=== PATIENT | female | born 1970 | race Caucasian/White ===

== ENCOUNTER → 2017-03-27 | Outpatient (CLI) | payer OTHER ==
--- NOTE | 2017-03-27 22:29 | CT ---
EXAMINATION TYPE: CT chest wo con DATE OF EXAM: 03/27/2017 7:28 PM COMPARISON: NONE HISTORY: 47-year-old female scar tissue found on chest x-ray, further evaluation. TECHNIQUE: Contiguous axial scanning of the chest without IV contrast. Coronal and sagittal reconstru ctions performed. CT DLP: 629 mGycm Automated exposure control for dose reduction was used. FINDINGS: The heart is normal size without pericardial effusion. Coronary vessel calcifications are present and are a marker for coronary artery disease. Mild lipomatous hypertrophy of the inter atrial septum. Ascending aorta measures at the upper limits of normal at 3.5 cm. There is conventional arterial vess el branching anatomy. No thoracic lymphadenopathy by CT size criteria. Some calcified lymph nodes are noted in the precarin al region and subcarinal region as well as the right hilum. There is mild centrilobular emphysema with mild to moderate diffuse bronchial wall thickening. Some m osaic attenuation throughout the lungs suggests air trapping and small airways disease. There is nodu larity within the peripheral right midlung measuring 1.8 x 0.5 cm with adjacent tiny 3 mm nodules as well. Findings suspected to be on an inflammatory basis, possibly with some endobronchial plugging. T his should be reassessed at follow-up. Visualized upper abdomen shows marked diffuse hypodensity of the liver and calcified granulomas in th e spleen. There is a heterogeneous rounded area partially visualized in the enedina hepatis suspected to represen t a stone filled gallbladder and can be further evaluated with ultrasound to exclude a central liver mass. Bones: Multilevel degenerative disc disease mid to lower thoracic spine. No osseous destructive proce ss. IMPRESSION: 1. COPD WITH MILD EMPHYSEMA BUT A PROMINENT COMPONENT OF CHRONIC BRONCHITIS WITH SMALL AIRWAYS DISEAS E. 2. ELONGATED NODULE IN THE PERIPHERAL RIGHT MIDLUNG MEASURES 1.8 X 0.5 CM WITH SOME ADJACENT TINY 3 M M NODULES WELL. FINDINGS SUSPECTED TO BE ON INFLAMMATORY BASIS, POSSIBLY WITH SOME ENDOBRONCHIAL P LUGGING. SIX-MONTH FOLLOW-UP RECOMMENDED TO REASSESS. 3. MARKED HEPATIC STEATOSIS. CORRELATE WITH LFT's, LIPID PROFILE, AND PATIENT RISK FACTORS. 4. PARTIALLY VISUALIZED ROUND HETEROGENEOUS AREA AT THE PORTAHEPATIS WHICH LIKELY REPRESENTS A STONE PACKED GALLBLADDER. RECOMMEND LIVER ULTRASOUND TO EXCLUDE A CENTRAL HEPATIC MASS. 5. CAD AND PRIOR GRANULOMATOUS DISEASE.
== END | disposition home or self-care (01) ==
LOC: RADCTMAIN 18:54
PROVIDERS: ATTEND Family Medicine
DX: J44.9 Chronic obstructive pulmonary disease, unspecified (principal); R91.8 Other nonspecific abnormal finding of lung field; K76.0 Fatty (change of) liver, not elsewhere classified; R93.2 Abnormal findings on diagnostic imaging of liver and biliary tract; I25.10 Atherosclerotic heart disease of native coronary artery without angina pectoris; D71 Functional disorders of polymorphonuclear neutrophils
CPT/HCPCS: 71250

== ENCOUNTER → 2017-04-04 | Outpatient (CLI) | payer OTHER ==
--- NOTE | 2017-04-04 18:28 | CT ---
EXAMINATION TYPE: CT sinus wo con DATE OF EXAM: 04/04/2017 5:56 PM COMPARISON: NONE HISTORY: Patient complains of recurrent sinus infections. CT DLP: 670.3 mGycm Automated exposure control for dose reduction was used. FINDINGS: There is some mild mucosal thickening in the right side of the sphenoid sinus. There is bilateral pat ency of the ostiomeatal complex. There is a 5 mm mucous retention cyst in the left maxillary sinus. O rbital margins are intact. The maxilla is intact. There is no evidence of orbital mass. IMPRESSION: THERE IS EVIDENCE FOR MILD SPHENOID SINUSITIS. OTHERWISE NEGATIVE EXAM.
== END | disposition home or self-care (01) ==
LOC: RADCTMAIN 17:40
PROVIDERS: ATTEND Otolaryngology
DX: J32.9 Chronic sinusitis, unspecified (principal)
CPT/HCPCS: 70486

== ENCOUNTER → 2017-05-09 | Outpatient (CLI) | payer OTHER ==
--- NOTE | 2017-05-09 17:03 | US ---
EXAMINATION TYPE: US abdomen complete DATE OF EXAM: 05/09/2017 COMPARISON: CT Chest CLINICAL HISTORY: K80.[address] showed possible gallstones. No pain. EXAM MEASUREMENTS: Liver Length: 20.2 cm Gallbladder Wall: 0.2 cm CBD: 0.4 cm Spleen: 12.1 cm Right Kidney: 13.4 x 5.7 x 4.6 cm Left Kidney: 11.2 x 4.7 x 5.6 cm Pancreas: Tail obscured by overlying bowel gas Liver: Echogenic. Heterogenous. Enlarged. Focal hypoechoic area seen adjacent to GB - 4.5 x 1.5 x 2.0 cm. Gallbladder: Multiple mobile echogenic foci Evidence for sonographic Leblanc's sign: neg CBD: wnl Spleen: wnl Right Kidney: enlarged Left Kidney: wnl Upper IVC: seen Abd Aorta: seen IMPRESSION: 1. Gallstones 2. Hepatomegaly
== END | disposition home or self-care (01) ==
LOC: RADUSWWP 08:04
PROVIDERS: ATTEND Family Medicine
DX: K80.20 Calculus of gallbladder without cholecystitis without obstruction (principal); R16.0 Hepatomegaly, not elsewhere classified
CPT/HCPCS: 76700

== ENCOUNTER → 2017-08-28 | Outpatient (CLI) | payer OTHER ==
--- NOTE | 2017-08-28 12:49 | CT ---
EXAMINATION TYPE: CT chest wo con DATE OF EXAM: 08/28/2017 COMPARISON: 03/27/17 HISTORY: lung nodules, hx of pneumonia CT DLP: [address] of the chest was performed with lung and mediastinal window settings submitted. The la ck of contrast limits evaluation of the vascular, mediastinal and parenchymal structures including th e upper abdomen. LUNGS: The lungs are clear and free of infiltrate. No atelectasis. Right lower lobe micronodularity a gain seen and appears essentially unchanged. No pleural effusion. No CT evidence of interstitial alvaro g disease. MEDIASTINUM/ADRIEL: Thoracic aorta is of normal caliber with limited evaluation given lack of contrast . The heart is not enlarged. No evidence for mediastinal mass. No lymph nodes greater than 1cm. C alcified mediastinal lymph nodes are noted. UPPER ABDOMEN: Hepatic steatosis noted. OTHER: No significant other abnormality. IMPRESSION: 1. Right lower lobe micronodularity again seen and appears essentially unchanged. 2. Remote granulomatous disease.
== END | disposition home or self-care (01) ==
LOC: RADCTMAIN 12:21
PROVIDERS: ATTEND Internal Medicine Pulmonary Disease
DX: R91.8 Other nonspecific abnormal finding of lung field (principal); R06.02 Shortness of breath; R05 Cough
CPT/HCPCS: 71250

== ENCOUNTER → 2018-01-25 | Outpatient (CLI) | payer OTHER ==
[2018-01-25 12:40] LABS: Basophils # (A) 0.1 k/uL (0-0.2); Basophils % (A) 1 %; Eosinophils # (A) 0.3 k/uL (0-0.7); Eosinophils % (A) 3 %; HGB 13.6 gm/dL (11.4-16.0); Lymphocytes # (A) 2.9 k/uL (1.0-4.8); Lymphocytes % (A) 28 %; MCH 29.2 pg (25.0-35.0); MCHC 31.5 g/dL (31.0-37.0); MCV 92.6 fL (80.0-100.0); Mean Platelet Volume 7.9; Monocytes # (A) 0.6 k/uL (0-1.0); Monocytes % (A) 6 %; Neutrophils # (A) 6.3 k/uL (1.3-7.7); Neutrophils % (A) 60 %; Platelet Count 225 k/uL (150-450); RBC 4.65 m/uL (3.80-5.40); RDW 13.6 % (11.5-15.5); WBC 10.5 k/uL (3.8-10.6)
[2018-01-25 14:07] LABS: Anisocytosis (M) Present
[2018-01-25 19:50] LABS: Iron Saturation 13.82 (12.00-45.00)
== END ==
LOC: LABWHC1 12:01
PROVIDERS: ATTEND Family Medicine
DX: R79.89 Other specified abnormal findings of blood chemistry (principal)
CPT/HCPCS: 36415; 82728; 83540; 83550; 85025

== ENCOUNTER → 2019-02-13 | Outpatient (CLI) | payer OTHER ==
--- NOTE | 2019-02-15 10:08 | MM ---
Reason for exam: screening (asymptomatic). Last mammogram was performed 1 year and 3 months ago. History: Family history of breast cancer in 2 maternal aunts. Physical Findings: A clinical breast exam by your physician is recommended on an annual basis and results should be correlated with mammographic findings. MG Screening Mammo w CAD Bilateral CC and MLO view(s) were taken. Prior study comparison: November 10, 2017, bilateral MG screening mammo w CAD. September 23, 2016, bilateral MG screening mammo w CAD. There are scattered fibroglandular densities. No significant changes when compared with prior studies. ASSESSMENT: Negative, BI-RAD 1 RECOMMENDATION: Routine screening mammogram of both breasts in 1 year.
== END | disposition home or self-care (01) ==
LOC: RADMAMWWP 13:56
PROVIDERS: ATTEND Family Medicine
DX: Z12.31 Encounter for screening mammogram for malignant neoplasm of breast (principal)
CPT/HCPCS: 77067

== ENCOUNTER → 2019-03-05 | Outpatient (CLI) | payer OTHER ==
[2019-03-05 14:33] LABS: Blood Urea Nitrogen 12 mg/dL (7-17)
--- NOTE | 2019-03-05 15:48 | CT ---
EXAMINATION TYPE: CT chest w con DATE OF EXAM: 03/05/2019 COMPARISON: 03/14/2018 HISTORY: Follow up scan per patient. No complaints at time of scan. CT DLP: 618 mGycm. Automated Exposure Control for Dose Reduction was Utilized. TECHNIQUE: CT scan of the thorax is performed following with IV Contrast, patient injected with 100 mL of Isovue 300. FINDINGS: LUNGS: The lateral right lower lobe pulmonary nodule again is calcified compatible with benign granul omatous change. The surrounding nodular opacity is unchanged from the prior. No new suspicious pulmon lina nodule or mass. The lungs are grossly clear, there is no concerning parenchymal mass or nodule id entified. There is no pleural effusion or pneumothorax seen. The tracheobronchial tree is patent. MEDIASTINUM: There are no greater than 1 cm hilar or mediastinal lymph nodes. Few calcified mediastin al lymph nodes are again noted. Moderate coronary calcifications are seen. No pericardial effusion is seen. OTHER: Geographic mosaic attenuation of the lung bases and very mild lower lobe peribronchial cuffing is again noted as seen on the prior. There is redemonstration of severe hepatic steatosis with proba ble focal fatty sparing near the gallbladder fossa and probable noncalcified gallstone. Benign spleni c granulomatous changes are present. Nonenlarged periportal lymph nodes are likely reactive. Mild mul tilevel degenerative changes of the spine. IMPRESSION: 1. Stable benign pulmonary canal mediastinal, and splenic granulomatous changes. No new suspicious pu lmonary nodule or mass. 2. Redemonstration of basilar air trapping and very mild peribronchial cuffing suggests reactive airw ay disease. Correlate for asthma and/or COPD. 3. Moderate coronary artery calcifications, marker of coronary artery disease 4. Severe hepatic steatosis with areas of probable focal fatty sparing and redemonstration of choleli thiasis.
== END | disposition home or self-care (01) ==
LOC: RADCTMAIN 13:25
PROVIDERS: ATTEND Internal Medicine
DX: J84.10 Pulmonary fibrosis, unspecified (principal); I25.10 Atherosclerotic heart disease of native coronary artery without angina pectoris
CPT/HCPCS: 82565; 84520; 71260; 36415; Q9967

== ENCOUNTER → 2020-08-06 | Outpatient (CLI) | payer OTHER ==
--- NOTE | 2020-08-07 11:11 | MM ---
Reason for exam: screening (asymptomatic). Last mammogram was performed 1 year and 6 months ago. History: Family history of breast cancer in 2 maternal aunts. Physical Findings: A clinical breast exam by your physician is recommended on an annual basis and results should be correlated with mammographic findings. MG Screening Mammo w CAD Bilateral CC and MLO view(s) were taken. Prior study comparison: February 13, 2019, bilateral MG screening mammo w CAD. November 10, 2017, bilateral MG screening mammo w CAD. There are scattered fibroglandular densities. No significant changes when compared with prior studies. ASSESSMENT: Negative, BI-RAD 1 RECOMMENDATION: Routine screening mammogram of both breasts in 1 year.
== END | disposition home or self-care (01) ==
LOC: RADMAMWWP 11:22
PROVIDERS: ATTEND Family Medicine
DX: Z12.31 Encounter for screening mammogram for malignant neoplasm of breast (principal)
CPT/HCPCS: 77067

== ENCOUNTER → 2021-09-09 | Outpatient (CLI) | payer OTHER ==
--- NOTE | 2021-09-10 06:55 | CT ---
EXAMINATION TYPE: CT abdomen pelvis w con DATE OF EXAM: 09/09/2021 HISTORY: ABNORMAL KIDNEY FUNCTION CT DLP: 859.4mGycm Automated Exposure Control for Dose Reduction was Utilized. CONTRAST: CT scan of the abdomen and pelvis is performed with IV Contrast, patient injected with 80 mL of Isovu e 300. COMPARISON: Ultrasound abdomen complete May 09, 2017 FINDINGS: LUNG BASES: No significant abnormality is appreciated. LIVER/GB: No significant abnormality is appreciated. PANCREAS: No significant abnormality is seen. SPLEEN: Some calcifications scattered throughout the spleen are present from products of old granulom atous disease. Subcentimeter low dense lesion inferiorly is presumed benign but too small to further characterize. ADRENALS: No significant abnormality is seen. KIDNEYS: There are prominent renal pelvises bilaterally but symmetric corticomedullary uptake and exc retion without calyceal dilatation. Findings consistent with extrarenal pelvises. Some lobulated cont our to the kidneys without concerning solid or cystic mass. Single bilateral renal arteries without s ignificant stenosis. BOWEL: Oral contrast does not reach colonic level. This is no suspicious small or large bowel dilatat ion. Occasional distal colonic diverticula. Incidental normal-appearing appendix from cecum. UTERUS/ADNEXA: Pessary type device in the vaginal vault. Uterus normal in size. LYMPH NODES: No greater than 1cm abdominal or pelvic lymph nodes are appreciated. OSSEOUS STRUCTURES: Mild to moderate disc space narrowing with vacuum disc phenomenon at L5-S1 level. OTHER: No significant additional abnormality is seen. IMPRESSION: No concerning renal masses. Extrarenal pelvises bilaterally. No delayed excretion. No sig nificant renal artery stenosis.
== END | disposition home or self-care (01) ==
LOC: RADCTMAIN 14:55
PROVIDERS: ATTEND Family Medicine
DX: K57.30 Diverticulosis of large intestine without perforation or abscess without bleeding (principal); R93.429 Abnormal radiologic findings on diagnostic imaging of unspecified kidney
CPT/HCPCS: 82565; 84520; 74177; 36415; Q9967

== ENCOUNTER → 2021-10-04 | Outpatient (CLI) | payer OTHER ==
--- NOTE | 2021-10-04 13:56 | MM ---
Reason for exam: screening (asymptomatic). Last mammogram was performed 1 year and 2 months ago. History: Family history of breast cancer in 2 maternal aunts. Took hormonal contraceptives for 5 years. Physical Findings: A clinical breast exam by your physician is recommended on an annual basis and results should be correlated with mammographic findings. MG Screening Mammo w CAD Bilateral CC and MLO view(s) were taken. Prior study comparison: August 06, 2020, bilateral MG screening mammo w CAD. February 13, 2019, bilateral MG screening mammo w CAD. There are scattered fibroglandular densities. There is no discrete abnormality. ASSESSMENT: Negative, BI-RAD 1 RECOMMENDATION: Routine screening mammogram of both breasts in 1 year.
== END | disposition home or self-care (01) ==
LOC: RADMAMWWP 07:11
PROVIDERS: ATTEND Obstetrics & Gynecology
DX: Z12.31 Encounter for screening mammogram for malignant neoplasm of breast (principal); Z80.3 Family history of malignant neoplasm of breast
CPT/HCPCS: 77067

== ENCOUNTER → 2023-04-10 | Outpatient (CLI) | payer OTHER ==
--- NOTE | 2023-04-11 19:36 | MM ---
Reason for Exam: Screening (asymptomatic). Last mammogram was performed 1 year(s) and 6 month(s) ago. Patient History: Menarche at age 13. First Full-Term at age 17. Postmenopausal. Patient used Hormonal Contraceptives for 5 years. Maternal aunt had breast cancer, age 35. Maternal aunt had breast cancer. Risk Values: Aysha 5 year model risk: 0.8%. NCI Lifetime model risk: 6.2%. Prior Study Comparison: 02/13/2019 Bilateral Screening Mammogram, [facility]. 08/06/2020 Bilateral Screening Mammogram, [facility]. 10/04/2021 Bilateral Screening Mammogram, [facility]. Tissue Density: There are scattered fibroglandular densities. Findings: Analyzed By CAD. There is no suspicious group of microcalcifications or new suspicious mass in either breast. Overall Assessment: Negative, BI-RAD 1 Management: Screening Mammogram of both breasts in 1 year. . Patient should continue monthly self-breast exams. A clinical breast exam by your physician is recommended on an annual basis. This exam should not preclude additional follow-up of suspicious palpable abnormalities. Note on Aysha scores and lifetime risk: 1. A Aysha score greater than 3% is considered moderate risk. If this is the case, consider specialist referral to assess eligibility for a risk reducing agent. 2. If overall lifetime risk for the development of breast cancer is 20% or higher, the patient may qualify for future screening with alternating mammogram and breast MRI. Electronically signed and approved by: Janay Reis M.D. Radiologist
== END | disposition home or self-care (01) ==
LOC: RADMAMWWP 14:41
PROVIDERS: ATTEND Family Medicine
DX: Z12.31 Encounter for screening mammogram for malignant neoplasm of breast (principal); Z78.0 Asymptomatic menopausal state; Z80.3 Family history of malignant neoplasm of breast
CPT/HCPCS: 77067

== ENCOUNTER → 2024-12-23 | Outpatient (CLI) | payer OTHER ==
--- NOTE | 2024-12-24 08:33 | MM ---
Reason for Exam: Screening (asymptomatic). Last mammogram was performed 1 year(s) and 8 month(s) ago. Patient History: Menarche at age 13. First Full-Term at age 17. Postmenopausal. Patient used Hormonal Contraceptives for 5 years. Maternal aunt had breast cancer, age 35. Maternal aunt had breast cancer. Risk Values: Aysha 5 year model risk: 0.8%. NCI Lifetime model risk: 6.1%. Prior Study Comparison: 08/06/2020 Bilateral Screening Mammogram, [facility]. 10/04/2021 Bilateral Screening Mammogram, [facility]. 04/10/2023 Bilateral MG screening mammo w CAD, [facility]. Tissue Density: The breasts are almost entirely fatty. Findings: Analyzed By CAD. Right breast: There is no suspicious group of microcalcifications or new suspicious mass. Left breast: There is no suspicious group of microcalcifications or new suspicious mass. Overall Assessment: Negative, BI-RAD 1 Management: Screening Mammogram of both breasts in [address] [facility] will attempt to contact patient to return for supplemental views and ultrasound if indicated. Patient should continue monthly self-breast exams. A clinical breast exam by your physician is recommended on an annual basis. This exam should not preclude additional follow-up of suspicious palpable abnormalities. Note on Aysha scores and lifetime risk: 1. A Aysha score greater than 3% is considered moderate risk. If this is the case, consider specialist referral to assess eligibility for a risk reducing agent. 2. If overall lifetime risk for the development of breast cancer is 20% or higher, the patient may qualify for future screening with alternating mammogram and breast MRI. [facility], , 12/24/2024 8:30 AM. Electronically signed and approved by: Misael Stark DO
== END | disposition home or self-care (01) ==
LOC: RADMAMWWP 15:37
PROVIDERS: ATTEND Family Medicine
DX: Z12.31 Encounter for screening mammogram for malignant neoplasm of breast (principal); R92.313 Mammographic fatty tissue density, bilateral breasts; Z78.0 Asymptomatic menopausal state; Z80.3 Family history of malignant neoplasm of breast
CPT/HCPCS: 77067